=== PATIENT | female | born 1965 | race Caucasian/White ===

== ENCOUNTER 2019-11-07 13:25 | Outpatient (CLI) | payer BC, SELFPAY ==
--- NOTE | ~2019-11-07 | US_ITS ---
EXAMINATION: US FNA w image guidance, US FNA additional DATE: 11/07/2019 14:52 INDICATION: Nontoxic goiter with bilateral thyroid nodules. TECHNIQUE: A time-out was performed to verify the patient's name, date of , and procedure to be performed . The procedure and its benefits and risks were discussed with the patient. Risks specifically discus sed included bleeding and infection. The patient understood the risks and agreed to proceed. The neck was prepped and draped in the usual sterile manner. Attention was first turned to the left thyroid n odule. 2 mL 1% lidocaine was used for local anesthesia. 6 passes were made with a 25G needle into the lesion. Appropriate needle location was documented with continuous sonographic guidance. Attention was then turned to the right thyroid nodule. An additional 2 mm 1% lidocaine was used for local anest hesia. 6 passes were made with a 25G needle into the lesion. Appropriate needle location was documen diamante with continuous sonographic guidance. Sterile bandages were applied. There were no immediate com plications. FINDINGS: Grayscale ultrasound images demonstrate a 2.1 x 1.3 x 1.0 cm solid hypoechoic nodule with coarse shad owing calcifications in the mid to inferior right thyroid lobe. The largest nodule is a 2.8 x 1.3 x 1 .4 cm solid hypoechoic nodule in the left thyroid lobe with punctate echogenic microcalcifications al en with a couple small shadowing coarse calcifications. Additional images demonstrate biopsy needles advanced into both nodules. IMPRESSION: 1. Successful ultrasound-guided fine needle aspiration of a 2.8 cm TI RADS 5 left thyroid nodule. 2. Successful ultrasound-guided fine-needle aspiration of a 2.1 cm TI RADS 4 right thyroid nodule. Reviewed, dictated and finalized at location A. IMPRESSION: 1. Successful ultrasound-guided fine needle aspiration of a 2.8 cm TI RADS 5 l eft thyroid nodule. 2. Successful ultrasound-guided fine-needle aspiration of a 2.1 cm TI RADS 4 ri ght thyroid nodule.
== END 2019-11-07 13:26 | disposition home or self-care (01) ==
PROVIDERS: Visit Provider Internal Medicine Endocrinology, Diabetes & Metabolism
DX: R91.8 Other nonspecific abnormal finding of lung field (principal)
CPT/HCPCS: 10005; 10006; 88173; 88305